=== PATIENT | male | born 1955 | race Two or more races ===

== ENCOUNTER 2018-04-20 01:09 | Emergency (ER) | payer SELFPAY ==
[~2018-04-20] VITALS: Ht 167.6 cm; Wt 76.2 kg
[2018-04-20] MEDS ORDERED: LORazepam 0.5 MG TAB PO ONE (02:15)
[2018-04-20 02:53] LABS: Eosinophils # (auto) 0 uL; Eosinophils % (auto) 0.7 % (0.0-7.0); Hemoglobin 13.5 g/dL (13.5-17.5); Lymphocytes # (auto) 1.4 uL; Red Cell Distribution Width 13.6 % (11.8-14.3)
[2018-04-20 02:55] LABS: Basophils # (auto) 0.1 uL; Basophils % (auto) 1.2 % (0.0-2.0); Hematocrit 40.5 % (41.0-53.0); Lymphocytes % (auto) 22.6 % (10.0-50.0); Mean Corpuscular Hemoglobin 34.6 pg (28.0-32.0); Mean Corpuscular Hgb Conc. 33.4 g/dL (32.0-36.0); Mean Corpuscular Volume 103.7 fL (80.0-100.0); Monocytes # (auto) 0.6 uL; Monocytes % (auto) 9.4 % (0.0-12.0); Neutrophils % (auto) 66.1 % (37.0-80.0); Platelet Count (auto) 105 10^3/uL (140-450)
[2018-04-20 03:04] LABS: INR 1.05 (0.9-1.15); Partial Thromboplastin Time 29.1 sec (23.78-33.04); Prothrombin Time 11.2 sec (9.27-12.13)
[2018-04-20 03:08] LABS: Alanine Aminotransferase 80 U/L (16-61); Albumin 3.7 g/dL (3.4-5.0); Anion Gap 12 (5-15); Aspartate Aminotransferase 124 U/L (15-37); BUN/Creatinine Ratio 15.4; Blood Urea Nitrogen 8 mg/dL (7-18); Calcium 7.6 mg/dL (8.5-10.1); Carbon Dioxide 22 mmol/L (21-32); Chloride 106 mmol/L (98-107); GFR African American 206 mL/min; GFR Non-African American 171 mL/min; Glucose 95 mg/dL (74-106); Magnesium 2.4 mg/dL (1.6-2.6); Potassium 3.4 mmol/L (3.5-5.1); Salicylate 2.2 mg/dL (2.8-20.0); Sodium 140 mmol/L (136-145)
[2018-04-20 03:09] LABS: Acetaminophen < 2.0 ug/mL (10-30)
[2018-04-20 03:16] LABS: Alkaline Phosphatase 80 U/L (45-117); Bilirubin, Total 0.9 mg/dL (0.2-1.0); Total Protein 7.1 g/dL (6.4-8.2)
[2018-04-20 06:20] VITALS: BP 122/76
== END 2018-04-20 06:32 | disposition home or self-care (01) ==
LOC: EDBD 01:09 → ER 01:15
DX: F10.120 Alcohol abuse with intoxication, uncomplicated (principal); R07.89 Other chest pain
CPT/HCPCS: 36415; 71045; 80053; 80320; 80329; 83735; 84484; 85025; 85610; 85730; 93005